=== PATIENT | female | born 1945 | race Caucasian/White ===

== ENCOUNTER 2017-04-25 12:05 | Emergency (ER) | payer MEDICARE ==
[~2017-04-25] VITALS: Ht 160 cm; Wt 75.1 kg
[~2017-04-25 12:05] MED LIST: ALLO300 PO; FURO20TA PO; KCL20 PO; LEVO50TA51 PO; LISI-357 PO; LORA1TAB PO; MAGN400 PO; METO50TA PO; PARO40TA PO; PRED5 PO; RIVA20 PO; VITA-13 PO
[2017-04-25 12:37] VITALS: BP 141/84; PULSE 71; RESP 15; TEMP 98; O2SAT 91
[2017-04-25 13:04] VITALS: O2SAT 96
--- NOTE | 2017-04-25 13:13 | PD ---
HPI Chief Complaint: Injury Time Seen by Provider: 12:56 Travel History International Travel<30 days: No Contact w/Intl Traveler<30days: No Traveled to known affect area: No History of Present Illness HPI 72-year-old female with history of gout presents to the emergency room for evaluation of right wrist pain, redness, and swelling for the past 3 days. Patient states she had to lay on the floor at a custodial and push up on her wrists to get up. States she had a difficult time getting up and is concerned she may have broken her wrist because of how severe the pain is. Pain, redness , and swelling developed the following day. She has not taken anything for symptoms. States the pain feels similar to when she gets gout in her right great toe. Pain is worsened with range of motion. No pain at rest. No paresthesias. No radiation. PFSH Past Medical History Hx Anticoagulant Therapy: Yes Anemia: Yes Arthritis: Yes Asthma: No Autoimmune Disease: Yes (LUPUS) Blood Disorders: No Anxiety: Yes Depression: Yes Heart Rhythm Problems: Yes Cancer: No Cardiac Catheterization: Yes Cardiovascular Problems: Yes High Cholesterol: No Chemotherapy: No Chest Pain: No Congestive Heart Failure: Yes COPD: Yes Diabetes: No Diminished Hearing: No Endocrine: Yes Gastrointestinal Disorders: Yes GERD: Yes Glaucoma: No Gout: Yes Genitourinary: Yes (UTI'S) Hepatitis: No Hiatal Hernia: Yes (REPAIRED 08/2008) Hypertension: Yes Immune Disorder: Yes (LUPUS, FIBROMYALGIA) Implanted Vascular Access Dvce: Yes (DEFIBULATOR [id number], [facility] 2011) Musculoskeletal: Yes (FIBROMYALGIA) Neurologic: No Psychiatric: Yes Reproductive: No Respiratory: Yes Myocardial Infarction: No Radiation Therapy: No Sickle Cell Disease: No Sleep Apnea: Yes Thyroid Disease: Yes (HYPOTHYROID) Ulcer: No Menopausal: Yes : 0 Para: 0 Past Surgical History Abdominal Surgery: Yes (HERNIA REPAIR. LAP BAND, ') AICD: Yes (DEFIBULATOR [id number], [facility] ) Appendectomy: No Arteriovenous Shunt: No Body Medical Devices: AICD Cardiac Surgery: Yes (PACEMAKER/DEFIB) Cholecystectomy: Yes Ear Surgery: No Endocrine Surgery: No Eye Surgery: Yes (CATARACT EXTRACT. KEKE.) Genitourinary Surgery: No Gynecologic Surgery: No Insulin Pump: No Joint Replacement: Yes (BILATERAL KNEES PARTIAL REPLACEMENT 2006) Oral Surgery: No Pacemaker: Yes (DEFIBULATOR [id number], [facility] ) Thoracic Surgery: No Other Surgery: Yes (PYLONIDAL CYST REMOVED "MANY YRS AGO") Social History Alcohol Use: Yes (1 DRINK EVERY NIGHT) Tobacco Use: No Substance Use: No Allergies-Medications (Allergen,Severity, Reaction): Coded Allergies: Sulfa (Sulfonamide Antibiotics) (Unverified Allergy, Severe, rash, 04/25/17 ) ampicillin (Unverified Allergy, Severe, Rash, 04/25/17) clindamycin (Unverified Allergy, Severe, Rash, 04/25/17) penicillin G (Unverified Allergy, Severe, Rash, 04/25/17) ciprofloxacin (Unverified Allergy, Mild, 04/25/17) Reported Meds & Prescriptions Reported Meds & Active Scripts Active Prednisone 20 Mg Tab 40 Mg PO DAILY Take 40 mg (2 tablets) daily for 5 days Reported Magnesium Oxide 500 Mg Tab 500 Mg PO DAILY Colace (Docusate Sodium) 100 Mg Capsule Metoprolol Tartrate 100 Mg Tab 100 Mg PO DAILY Plaquenil (Hydroxychloroquine Sulfate) 200 Mg Tab 200 Mg PO DAILY Take with food Paxil (Paroxetine HCl) 30 Mg Tab 30 Mg PO DAILY Eliquis (Apixaban) 5 Mg Tab 5 Mg PO BID D-2000 Maximum Strength (Cholecalciferol) 2,000 Unit Tab 2,000 Units PO DAILY Allopurinol 300 Mg Tab 300 Mg PO DAILY Review of Systems Except as stated in HPI: all other systems reviewed are Neg Physical Exam Narrative GENERAL: Well-nourished, well-developed female in no acute distress. Afebrile. Ambulatory. SKIN: Focused skin assessment warm/dry. There is moderate erythema over the right ulnar styloid. No ecchymosis. Extreme warmth. No lymphangitis. HEAD: Normocephalic. EYES: No scleral icterus. No injection or drainage. NECK: Supple, trachea midline. No JVD or lymphadenopathy. CARDIOVASCULAR: Regular rate and rhythm without murmurs, gallops, or rubs. RESPIRATORY: Breath sounds equal bilaterally. No accessory muscle use. MUSCULOSKELETAL: No cyanosis. Moderate edema localized to the right ulnar styloid. Extreme tenderness to palpation. Radial, ulnar, and median nerves intact. 2+ radial pulse. Minimal pain with active range of motion. No pain with passive range of motion. Data Data Last Documented VS Vital Signs Date Time Temp Pulse Resp B/P (MAP) Pulse Ox O2 Delivery O2 Flow Rate FiO2 04/25/17 13:04 96 04/25/17 12:37 98.0 71 15 141/84 (103) Orders Orders Wrist, Complete ([id number]) (04/25/17 ) Splint Or Brace Apply/Monitor (04/25/17 14:46) [facility] Medical Decision Making Medical Screen Exam Complete: Yes Emergency Medical Condition: Yes Medical Record Reviewed: Yes Differential Diagnosis gouty arthritis, sprain, strain, fracture Narrative Course 72-year-old female presents to the emergency room for evaluation of right wrist pain for the past 3 days. Patient is concerned she may have broken her wrist while pushing up off the ground to stand 3 days ago. She denies any other injuries or trauma. Right upper extremity is neurovascularly intact with 2+ radial pulse. Radial, ulnar, and median nerves intact. Full range of motion of the right upper extremity. There is extreme tenderness to palpation, mild edema, and mild erythema over the ulnar styloid. It is extremely hot without lymphangitis. No concerned for septic arthritis as patient has full range of motion without significant pain. She is afebrile and well-appearing in the emergency room. Patient states pain is, dull, achy, similar to gout attacks in her right great toe. X-ray shows nondisplaced fracture of the ulnar styloid and distal radius. Patient placed in surgartong splint. Patient discharged with Lortab and told to follow up with a primary care physician or return for worsening symptoms. She understands and agrees to plan. Diagnosis Primary Impression: Fracture of ulnar styloid Qualified Codes: S52.614A - Nondisplaced fracture of right ulna styloid process, initial encounter for closed fracture Additional Impression: Distal radius fracture, right Qualified Codes: S52.501A - Unspecified fracture of the lower end of right radius, initial encounter for closed fracture Referrals: Primary Care Physician Additional Instructions: Rest and drink plenty of fluids. Keep sling on until follow-up. Lortab as directed, as needed for pain. Do not drink alcohol or drive while taking this medication. Apply ice to the affected area for 20 minutes at a time, as needed for pain and swelling. Follow-up with a primary care physician. Return to the emergency room for worsening symptoms. Med/Other Pt SpecificInfo: Prescription(s) given Scripts Prednisone (Prednisone) 20 Mg Tab 40 MG PO DAILY, #10 TAB 0 Refills Take 40 mg (2 tablets) daily for 5 days Prov: Jair Cho MD 04/25/17 Disposition: 01 DISCHARGE HOME Condition: Stable Marlen Lema Apr 25, 2017 13:13
[2017-04-25] MEDS ORDERED: PLAQ200T PO (13:32)
[2017-04-25] MEDS ORDERED: MAGN500T2 PO (13:32)
[2017-04-25] MEDS ORDERED: METO100T PO (13:32)
[2017-04-25] MEDS ORDERED: COLA100C (13:32)
[2017-04-25] MEDS ORDERED: ALLO300T2 PO (13:32)
[2017-04-25] MEDS ORDERED: APIX5TAB PO (13:32)
[2017-04-25] MEDS ORDERED: PAXI30TA7 PO (13:32)
[2017-04-25] MEDS ORDERED: D-20TAB3 PO (13:32)
[2017-04-25] MEDS ORDERED: PRED20 PO (13:37)
--- NOTE | 2017-04-25 14:43 | RADRPT ---
EXAM DATE/TIME: 04/25/2017 13:13 [facility] COMPARISON: No previous studies available for comparison. INDICATIONS : Right wrist pain and swelling for 2 days. MEDICAL HISTORY : None. SURGICAL HISTORY : None. ENCOUNTER: Initial ACUITY: 2 days PAIN SCORE: 4/10 LOCATION: Right lateral wrist. FINDINGS: There is soft tissue swelling involving the right wrist. There is apparent acute nondisplaced fractur e involving the ulnar styloid as well as possible very subtle nondisplaced fracture involving the rig ht distal radius. Subchondral cysts are noted throughout the carpal bones. Arterial vascular calcif ications are noted. CONCLUSION: 1. Acute nondisplaced fracture involving the ulnar styloid and possibly the distal radius. 2. Significant soft tissue swelling surrounding the right wrist and distal forearm. 3. Multiple subchondral cysts involving the carpal bones. Nick Herrera MD on April 25, 2017 at 13:21 Board Certified Radiologist. This report was verified electronically.
[2017-04-25] MEDS ORDERED: HYDR-3533 PO (15:01)
== END 2017-04-25 15:13 | disposition home or self-care (01) ==
LOC: PHEFT 12:05
DX: S52.614A Nondisplaced fracture of right ulna styloid process, initial encounter for closed fracture (principal); S52.501A Unspecified fracture of the lower end of right radius, initial encounter for closed fracture; X50.9XXA Other and unspecified overexertion or strenuous movements or postures, initial encounter; M32.9 Systemic lupus erythematosus, unspecified; I11.0 Hypertensive heart disease with heart failure; I50.9 Heart failure, unspecified; Z79.01 Long term (current) use of anticoagulants
CPT/HCPCS: 29515; 73110